=== PATIENT | female | born 1990 | race Two or more races ===

== ENCOUNTER 2020-12-20 21:38 | Emergency (ER) | payer MEDICAID ==
[~2020-12-20] VITALS: Ht 154.9 cm; Wt 49.9 kg
[2020-12-20 22:40] LABS: Basophils # (auto) 0 10 ^3/uL (0-0.2); Basophils % (auto) 0.2 % (0.0-2.0); Eosinophils # (auto) 0.1 10 ^3/uL (0-0.8); Eosinophils % (auto) 1.4 % (0.0-7.0); Hematocrit 39.9 % (36.0-46.0); Hemoglobin 13.1 g/dL (12.2-16.2); Lymphocytes # (auto) 1.8 10 ^3/uL (0.4-5.4); Lymphocytes % (auto) 31.1 % (10.0-50.0); Mean Corpuscular Hemoglobin 30.6 pg (28.0-32.0); Mean Corpuscular Hgb Conc. 32.9 g/dL (32.0-36.0); Monocytes # (auto) 0.5 10 ^3/uL (0-1.3); Monocytes % (auto) 7.8 % (0.0-12.0); Neutrophils # (auto) 3.4 10 ^3/uL (1.6-8.6); Neutrophils % (auto) 59.5 % (37.0-80.0); Nucleated Red Blood Cells % 0.2 %; Platelet Count (auto) 201 10^3/uL (140-450); Red Cell Distribution Width 12.7 % (11.8-14.3); White Blood Cell 5.8 10^3/uL (4.4-10.8)
[2020-12-20 23:02] LABS: Albumin 3.4 g/dL (3.4-5.0); BUN/Creatinine Ratio 38.6; Potassium 3.8 mmol/L (3.5-5.1)
[2020-12-20 23:05] LABS: Bilirubin, Total 0.3 mg/dL (0.2-1.0); Total Protein 7.6 g/dL (6.4-8.2)
[2020-12-21 01:23] LABS: Urine Bacteria MANY /hpf (None Seen); Urine Blood Negative /uL (Negative); Urine Mucus FEW (None Seen); Urine WBC 14 /hpf (0 - 5)
[2020-12-21 07:05] VITALS: BP 109/57
== END 2020-12-21 07:13 | disposition home or self-care (01) ==
LOC: ER 21:42
DX: N39.0 Urinary tract infection, site not specified (principal)
CPT/HCPCS: 36415; 80053; 81001; 83605; 85025; 85049; 87086